=== PATIENT | male | born 1950 | race Caucasian/White ===

== ENCOUNTER 2017-03-24 01:32 | Observation (INO) | payer MEDICAID ==
[2013-11-05 16:13] VITALS: Ht 177.8 cm; Wt 89.8 kg
--- NOTE | 2017-03-23 16:32 | HISTORY AND PHYSICAL ---
DATE OF ADMISSION: March 24, 2017. CHIEF COMPLAINT Elevated PSA. HISTORY OF PRESENT ILLNESS Patient is a 66-year-old white male who was referred to the Urology Clinic for an elevating PSA. He was seen on March 01. At that time his urinalysis was normal. His flow rate was at 13.2 mL/sec with a 61 mL volume postvoid residual. The patient has been on terazosin for for BPH symptoms by his primary care provider for the past three years. His PSA in October was elevated at 11.0. A PSA in 2014 was 4.3 and in 2014 it was 5.1. The patient denies gross hematuria or history of urinary tract infection. Digital rectal exam revealed a moderately enlarged prostate, approximately 40-50 g. There was some subtle induration on the left lateral aspect. The patient had recently seen Dr. Mike Sanchez to schedule a screening colonoscopy. After discussing the patient's progressive PSA and abnormal exam, recommended he undergo a transrectal ultrasound biopsy. Significant risks and benefits were explained including bleeding, infection, false negative rate and need for a secondary procedure. PAST MEDICAL HISTORY * Hypercholesterolemia. * History of pulmonary embolism. * Gastroesophageal reflux disease. * Degenerative joint disease. * BPH. PAST SURGICAL HISTORY * Right inguinal hernia in 2011. * Closed reduction of wrist fracture in 1978. ALLERGIES No known drug allergies. CURRENT MEDICATIONS * Omeprazole. * Terazosin. * Lipitor. * Gabapentin. * Xarelto. FAMILY HISTORY Patient denies known history of prostate cancer. PHYSICAL EXAMINATION GENERAL: Patient is a well-developed, well-nourished white male in no acute distress. HEENT: Normocephalic, atraumatic. CHEST: Clear to auscultation bilaterally. CARDIOVASCULAR: Regular rate and rhythm. ABDOMEN: Soft, nontender. No masses are palpated. GENITOURINARY: Exam is deferred to the OR. EXTREMITIES: Exam without clubbing, cyanosis or edema. NEUROLOGIC: Exam is nonfocal. ASSESSMENT A 66-year-old white male with increasing prostatic specific antigen now to 11 and abnormal digital rectal exam. PLAN We will perform transrectal ultrasound and biopsy of the prostate following Dr. Sanchez screening colonoscopy. [facility]
[2017-03-24] VITALS (10 sets, daily range): BP systolic 117–136; BP diastolic 81–105
[~2017-03-24] VITALS: Ht 177.8 cm; Wt 89.8 kg
[~2017-03-24 01:32] MED LIST: ATOR40TA69 PO; GABA-549 PO; GOLYTE PO; LOR5/325 PO; MULT1CAP59 PO; NAPR220C12 PO; OMEP-125 PO; OMEP-218 PO; RIV10 PO; RIVA20TA PO; TERA1CAP38 PO; WARF-18 PO
[2017-03-24] MEDS ORDERED: FAMOTIDINE 20 MG TAB PO ONE (06:15)
[2017-03-24] MEDS ORDERED: LIDOCAINE MPF 1% 5 ML VIAL ONE (06:31)
[2017-03-24] MEDS ORDERED: PROPOFOL EMUL(*) 10MG/ML 20 ML 20 ML ONE (06:31)
[2017-03-24] MEDS ORDERED: DEXAMETHASONE SOD 4 MG/ML VIAL ONE (06:31)
[2017-03-24] MEDS ORDERED: METOCLOPRAMIDE 10 MG/2 ML SDV ONE (06:31)
[2017-03-24] MEDS ORDERED: ONDANSETRON 4 MG/2 ML VIAL ONE (06:31)
[2017-03-24] MEDS ORDERED: fentaNYL CITR 100 MCG/2 ML AMP ONE (06:33)
--- NOTE | 2017-03-24 06:34 | EKG ---
FACILITY: [facility] [place] PATIENT NAME: CHER HEAD : [id number] MR: [id number] V: [id number] EXAM DATE: ORDERING PHYSICIAN: JO-ANN LYNCH TECHNOLOGIST: Ace Villalpando Reason : Blood Pressure : / mmHG Vent. Rate : 071 BPM Atrial Rate : 071 BPM P-R Int : 166 ms QRS Dur : 088 ms QT Int : 408 ms P-R-T Axes : 060 004 037 degrees QTc Int : 443 ms Sinus rhythm No acute appearing findings When compared with ECG of 14-NOV-2013 09:59, No significant change was found Confirmed by YAEL SCRUGGS ([id number]) on 03/24/2017 1:28:48 PM Referred By: Confirmed By:YAEL SCRUGGS
[2017-03-24] MEDS ORDERED: MIDAZOLAM 2 MG/2 ML VIAL IVP PRN (06:45)
[2017-03-24] MEDS ORDERED: NORMOSOL R SOLN(*) 1000 ML BAG 1,000 ML IV PRN (06:45)
[2017-03-24] MEDS ORDERED: LEVOFLOXACIN/D5W*500 MG/100 ML 100 ML IVPB ONE (06:45)
[2017-03-24] MEDS ORDERED: LIDOCAINE/SOD BICARB 8.4% SYR ID ONE (06:45)
--- NOTE | 2017-03-24 08:40 | Post Operative Progress Note ---
Post Operative Progress Note Date: Mar 24, 2017 Time: 08:38 Surgeon: Daniel Dictation number: [id number] on M*Modal Anesthesia: LMA by Dr. Encarnacion (Dr. Hutton to perform prostate biopsies after the colonoscopy) Pre-Op Diagnosis: Colorectal cancer screening, average risk Post-Op Diagnosis: GERRY Findings: 2 small polyps, 1 in ascending colon just proximal to hepatic flexure, the other in upper rectum Procedure(s): Colonoscopy with cold forceps removal of polyps x2 Specimen Removed:(May be N/A): 1) ascending colon polyp 2) rectal polyp Complications: None Fluids: See anesthesia record Estimated Blood Loss: None Date OP Note Dictated: Mar 24, 2017 Time OP Note Dictated: 08:39 PAZ ALVA MD Mar 24, 2017 08:40
--- NOTE | 2017-03-24 08:43 | Short(Outpt) Discharge Summary ---
Discharge Summary Reason for Hosp/Final Diag: (1) Colon cancer screening Status: Chronic Hospital Course & Plan: Colonoscopy with polypectomy x2 completed without problems. Departure Discharge to: Home, Self Care Discharge Instructions Home Meds Active Scripts Peg/Electrolytes (GOLYTELY SOLUTION) 4,000 Ml Soln, 1 GAL PO ONCE, #1 GAL 0 Refills Prov:PAZ ALVA MD 02/21/17 Reported Medications Rivaroxaban 20 Mg (XARELTO 20 MG) 20 Mg Tablet, 20 MG PO DAILY, TAB 03/18/17 Gabapentin (GABAPENTIN) 300 Mg Capsule, 300 MG PO MORNING, CAPSULE 03/18/17 Gabapentin (GABAPENTIN) 300 Mg Capsule, 600 MG PO HS, CAPSULE 03/18/17 Multivitamin (MULTIVITAMINS) 1 Each Capsule, 1 EACH PO DAILY, CAPSULE 03/18/17 Omeprazole (OMEPRAZOLE) 20 Mg Capsule.dr, 1 CAP PO QDAY, CAP 11/17/16 Atorvastatin Calcium (ATORVASTATIN CALCIUM) 40 Mg Tablet, 1 TAB PO QHS, TAB 11/17/16 Terazosin Hcl (TERAZOSIN HCL) 1 Mg Capsule, 1 MG PO QHS, CAPSULE 11/17/16 Discontinued Reported Medications Gabapentin (GABAPENTIN) 300 Mg Capsule, 300-600 MG PO BID, CAPSULE 11/17/16 Discontinued Scripts Rivaroxaban 20 Mg (XARELTO 20 MG) 20 Mg Tablet, 20 MG PO QDAY, #7 Take 15mg twice a day for about 3 weeks, then take 20mg once a day. Prov:WILLIAN MARMOLEJO MD 11/07/13 Diet: Regular Activity: As Tolerated Special Instructions: Your colonoscopy was completed without any problems and your prep was excellent (Good Job!!). I removed 2 small polyps from your colon and these were sent to pathology. My office will call you in the next week to let you know what the polyps are and when your next colonoscopy should be. Dr. Hutton will give you instructions about when to restart your Xarelto but from the colonoscopy standpoint your first dose of xarelto should be no earlier than 03/27/17, but Dr. Hutton may want you to hold it longer so discuss this with him before going home. PAZ ALVA MD Mar 24, 2017 08:43
[2017-03-24] MEDS ORDERED: APAP/HYDROCODONE 325/5 TAB PO PRN (09:40)
[2017-03-24] MEDS ORDERED: ZOLPIDEM TARTRATE 10 MG TAB PO PRN (09:40)
[2017-03-24] MEDS ORDERED: FLUSH 10 ML SYR IVP PRN (09:40)
[2017-03-24] MEDS ORDERED: MAG HYD/AL HYD/SIMETH 30ML UDC PO PRN (09:40)
[2017-03-24] MEDS ORDERED: ACETAMINOPHEN 325 MG TAB PO PRN (09:40)
--- NOTE | 2017-03-24 15:22 | OPERATIVE REPORT 1 ---
EVENT DATE: March 24, 2017 SURGEON: Noah Sanchez MD ANESTHESIOLOGIST: Noah Encarnacion MD ANESTHESIA: LMA, because he is also getting a urologic procedure by Dr. Hutton to follow the colonoscopy. PREOPERATIVE DIAGNOSIS Colorectal cancer screening, average risk. POSTOPERATIVE DIAGNOSES 1. Colorectal cancer screening, average risk. 2. Two colon polyps. PROCEDURE PERFORMED Colonoscopy with cold forceps polypectomies times two. SPECIMENS 1. Ascending colon polyp. 2. Rectal polyp. FINDINGS This patient's prep was excellent. Withdrawal time was 15 minutes. I saw two very small, 3 mm sessile polyps, one in the ascending colon near the hepatic flexure and the other in the upper rectum. INDICATIONS This is a 66-year-old gentleman who was referred to my office for colonoscopy. He never before had a colonoscopy. He has no known family history of colon or rectal cancer, and he had no GI symptoms. He was also due to get a prostate biopsy by Dr. Hutton because he was found to have an elevated PSA. DESCRIPTION OF PROCEDURE The patient was brought to the operating room and placed supine on the operating table. LMA anesthesia was administered, and his legs were placed in Yellofin stirrups. A digital rectal exam was completed which was unremarkable. I lubricated the colonoscope and advanced it into his rectum through the anus. I advanced it all the way through with no difficulty to the cecum. I also intubated the terminal ileum. I then slowly withdrew the scope as I looked at all mucosal surfaces for any abnormalities. I saw a 3 mm sessile polyp at the ascending colon near the hepatic flexure, and this was removed with cold biopsy forceps, and then the site was cauterized. I then placed an endoclip on this site because the patient is on Xarelto, so I wanted to minimize postprocedure bleeding. I continued to withdraw the scope and saw another small, 3 mm sessile polyp in the upper rectum, and this was removed with cold biopsy forceps. The site was clipped with an endoclip. Both of these sites were hemostatic. I then retroflexed the scope in the rectum to look at the distal rectum and upper anal canal, and there were no abnormalities there. I straightened the scope out, suctioned out as much carbon dioxide as I could from the patient's distal colon and rectum, and then withdrew the scope. I then departed the room, and Dr. Hutton proceeded with his portion of the case. The patient tolerated the procedure without any problems. ОЛЕГ
--- NOTE | 2017-03-24 16:34 | OPERATIVE REPORT 1 ---
EVENT DATE: March 24, 2017 SURGEON: Ronaldo Hutton MD ANESTHESIOLOGIST: Noah Encarnacion MD ANESTHESIA: General anesthetic. PREOPERATIVE DIAGNOSIS Elevated prostate-specific antigen with abnormal left prostate by digital rectal examination. POSTOPERATIVE DIAGNOSIS Elevated prostate-specific antigen with abnormal left prostate by digital rectal examination. PROCEDURES PERFORMED 1. Transrectal ultrasound of prostate. 2. Prostate transrectal needle biopsy. 3. Transrectal ultrasound guidance needle biopsy of prostate. ESTIMATED BLOOD LOSS 5 mL INTRAVENOUS FLUIDS Crystalloid. DRAINS None. COMPLICATIONS None. PATHOLOGY A total of 12 biopsy core specimens sent to Pathology labeled as to position. CONDITION The patient was taken to the recovery room awake and in stable condition. STATEMENT OF MEDICAL NECESSITY The patient is a 66-year-old white male who was noted to have an elevating PSA from 5 up to recently 11. A digital rectal exam revealed subtle deformities on the left lateral aspect of the prostate. The patient is now being taken to the operating room by Dr. Noah Sanchez of General Surgery for screening colonoscopy. We will perform concomitant ultrasound of the prostate with biopsies following his procedure. CONSENT The specific risks and benefits of this were discussed with the patient, including bleeding, infection, sepsis, a false negative with need for further procedures and/or testing. DESCRIPTION OF PROCEDURE PERFORMED The patient was brought to the operating room, and after general anesthetic was obtained, Dr. Sanchez performed a screening colonoscopy. After he was concluded with his procedure, the patient was still in the dorsal lithotomy position. A digital rectal exam was again performed. He still was noted to have some subtle firmness on the left lateral aspect of the prostate, and the prostate appeared to be approximately 60 mL in volume. At this point, the endfire LCM probe was introduced into the patient's rectum atraumatically, and real-time ultrasound of the prostate was performed through the rectal wall. There was no clear evidence of significant hypoechoic lesions throughout the prostate. The prostatic volume was measured at approximately 77 mL volume. My intraoperative interpretation of the ultrasound was enlarged prostate without median lobe extinction or other anomalies. At this point, the biopsy guide was engaged on the ultrasound machine, and this was used to perform ultrasound- guided needle biopsy of the prostate. The biopsy needle gun was used. A total of 12 biopsies were performed starting at the right lateral base, proceeding to the medial aspect, then doing the right mid lateral and medial aspects and in the right apex medial and lateral biopsies. After the right side was done, the left side was done in a similar manner. The ultrasound probe was then removed from the patient atraumatically. He was taken down from the dorsal lithotomy position. He was awakened in the operating room and taken to the recovery area in stable condition. PLAN The plan will be to allow the patient to be discharged home. He is to resume his Xarelto in two days and continue Levaquin for one more day. We will plan to see him in the Urology Clinic in one to two weeks to review his pathology. ОЛЕГ
[2017-03-24] MEDS ORDERED: IBUPROFEN 600 MG TAB PO PRN (17:55)
[2017-03-24] MEDS: NAPROXEN 500 MG TAB PO PRN (18:24)
[2017-03-24] MEDS ORDERED: GABAPENTIN 300 MG CAP PO SCH (21:00)
[2017-03-24] MEDS ORDERED: TERAZOSIN HCL 1 MG CAP PO SCH (21:00)
[2017-03-25 06:28] VITALS: BP 136/91
[2017-03-25] MEDS ORDERED: LEVOFLOXACIN 500 MG TAB PO SCH (06:30)
[2017-03-25] MEDS: NAPROXEN 500 MG TAB PO PRN (06:30)
[2017-03-25] MEDS ORDERED: ATORVASTATIN 40 MG TAB PO SCH (09:00)
[2017-03-25] MEDS ORDERED: PANTOPRAZOLE SOD 40 MG TABEC PO SCH (09:00)
[2017-03-25] MEDS ORDERED: GABAPENTIN 300 MG CAP PO SCH (09:00)
--- NOTE | 2017-03-25 13:42 | RADIOLOGY IMAGING REPORT ---
FACILITY: [facility] PATIENT NAME: Jax Ochoa : 1950 MR: [id number] V: [id number] EXAM DATE: ORDERING PHYSICIAN: PAZ ALVA TECHNOLOGIST: [place] [facility] [place]ax Ochoa : 1950 Visit/Account:[id number] Date of Sevice: 03/24/2017 Exam type: PROSTATE BIOPSY History: Elevated PSA Comparison: None. Findings: The prostate biopsy was performed by Dr. Hutton. Sonographic assistance was provided. Please see Dr Miri Hutton's note for complete details IMPRESSION: 1. As above Report Dictated By: Ellyn White MD at 03/25/2017 1:37 PM Report E-Signed By: Ellyn White MD at 03/25/2017 1:37 PM WSN:[email or web address]
== END 2017-03-25 07:16 | disposition home or self-care (01) ==
LOC: OR 01:32 → MED 09:52
PROVIDERS: ADMIT Urology; ATTEND Surgery
DX: Z12.11 Encounter for screening for malignant neoplasm of colon (principal); R97.20 Elevated prostate specific antigen [PSA]; D12.2 Benign neoplasm of ascending colon; K63.5 Polyp of colon
CPT/HCPCS: 00811; 45380; 55700; 76942; 88305; 88344; 93005; G0378; J1100; J1956; J2001; J2250; J2405; J2704; J2765; J3010

== ENCOUNTER 2017-03-29 16:58 | Emergency (ER) | payer MEDICAID ==
[2013-11-05 16:13] VITALS: Ht 177.8 cm; Wt 89.8 kg
[~2017-03-29] VITALS: Ht 177.8 cm; Wt 89.8 kg
--- NOTE | 2017-03-29 17:11 | ER Report ---
History and Physical Time Seen By MD: 17:09 HPI/ROS CHIEF COMPLAINT: Urinary obstruction HISTORY OF PRESENT ILLNESS: Patient is a 66-year-old male who presents emergency Department with urinary urgency and suprapubic abdominal pain and inability to pass urine. Patient was seen on 03/24/2017 for a needle biopsy of the prostate due to an enlargement on the left aspect of the prostate. This procedure was done by Dr. England. He further had a colonoscopy and polypectomy at that time was performed by Dr Woo. Patient states that he is currently not taking any pain medications nor did he require any narcotic pain medicines after the procedure. He states that he was doing well until this morning with urination states that he had difficulty urinating all day and was able to urinate which causing him his symptoms. He did try to see Dr. England but the office was closed so he presents to the emergency department for evaluation. REVIEW OF SYSTEMS: Respiratory: No cough, no dyspnea. Cardiovascular: No chest pain, no palpitations. Gastrointestinal: No vomiting, suprapubic abdominal discomfort Musculoskeletal: No back pain. Allergies: Coded Allergies: No Known Drug Allergies (Unverified , 03/29/17) Home Meds Reported Medications Rivaroxaban 20 Mg (XARELTO 20 MG) 20 Mg Tablet, 20 MG PO QDAY, TAB 03/29/17 Gabapentin (GABAPENTIN) 300 Mg Capsule, 300 MG PO MORNING, CAPSULE 03/18/17 Gabapentin (GABAPENTIN) 300 Mg Capsule, 600 MG PO HS, CAPSULE 03/18/17 Multivitamin (MULTIVITAMINS) 1 Each Capsule, 1 EACH PO DAILY, CAPSULE 03/18/17 Omeprazole (OMEPRAZOLE) 20 Mg Capsule.dr, 1 CAP PO QDAY, CAP 11/17/16 Atorvastatin Calcium (ATORVASTATIN CALCIUM) 40 Mg Tablet, 1 TAB PO QHS, TAB 11/17/16 Terazosin Hcl (TERAZOSIN HCL) 1 Mg Capsule, 1 MG PO QHS, CAPSULE 11/17/16 Discontinued Reported Medications Rivaroxaban 20 Mg (XARELTO 20 MG) 20 Mg Tablet, 20 MG PO DAILY, TAB 03/18/17 Discontinued Scripts Peg/Electrolytes (GOLYTELY SOLUTION) 4,000 Ml Soln, 1 GAL PO ONCE, #1 GAL 0 Refills Prov:PAZ ALVA MD 02/21/17 Past Medical/Surgical History Past medical history for chronic polyps; hyper cholesterolemia Hx Smoking: No Smoking Status: Never Smoker Exposure to Second Hand Smoke?: No Hx Substance Use Disorder: No Hx Alcohol Use: Yes Constitutional Vital Sign - Last 24 Hours 03/29/17 03/29/17 17:05 17:16 Temp 97.5 97.5 Pulse 92 92 Resp 16 B/P (MAP) 170/107 (128) 170/107 Pulse Ox 90 O2 Delivery Room Air Intake and Output 03/29/17 03/29/17 03/30/17 15:00 23:00 07:00 Output Total 900 ml Balance -900 ml Physical Exam General Appearance: The patient is alert, has no immediate need for airway protection and no current signs of toxicity. Eyes: Pupils equal and round no injection. Respiratory: Chest is non tender, lungs are clear to auscultation. Cardiac: regular rate and rhythm Gastrointestinal: Abdomen is soft and non tender, no masses, bowel sounds normal. Musculoskeletal: Neck: Neck is supple and non tender. Extremities have full range of motion and are non tender. Skin: No rashes or lesions. : Patient with Talamantes catheter intact which drained approximately 1100 mL of yellow colored clear urine. Medical Decision Making ED Course/Re-evaluation ED Course 03/29/2017 5:40:34 pm replaced by nursing staff prior to my evaluation. With return of approximately 1100 mL of clear yellow urine. Patient is feeling much better. Plan at this time will be to have a leg bag placed on the patient. We will send urine for urinalysis and culture. In the interim I'll place the patient on oral Keflex. I will have the patient make an appointment with Dr. Peck 48-72 hours for reevaluation and subsequent removal of the Talamantes catheter. Patient no questions or concerns at time of discharge Decision to Disposition Date: Mar 29, 2017 Decision to Disposition Time: 17:45 Depart Departure Latest Vital Signs Vital Signs Date Time Temp Pulse Resp B/P (MAP) Pulse Ox O2 Delivery O2 Flow Rate FiO2 03/29/17 17:16 97.5 92 16 170/107 90 Room Air Impression: Primary Impression: Urinary obstruction due to nodular prostate Condition: Improved Disposition: HOME OR SELF-CARE Referrals: KRISTAL BARNETT NP (PCP) DON ENGLAND MD 2 Days For reevaluation and Talamantes catheter removal. New Scripts Cephalexin Monohydrate (CEPHALEXIN) 500 Mg Cap 500 MG PO Q6H, #25 CAP 0 Refills Prov: TATO HUFF MD 03/29/17 Patient Instructions: Talamantes Catheter Placement and Care (ED) Additional Instructions: You were prescribed Keflex for prophylaxis for urinary catheter. You were given one dose in the emergency department prior to discharge. Please take one tablet or 500 mg prior to bedtime this evening and then upon awaking tomorrow morning March 30 take your remaining Keflex pill and then have your prescription filled and take as directed until completed. Make a follow-up appointment with Dr. England in 48-72 hours for reevaluation. If the Talamantes catheter is removed at this visit he may discontinue use of the antibiotics. TATO HUFF MD Mar 29, 2017 17:11
[2017-03-29 17:16] VITALS: BP 170/107
[2017-03-29] MEDS ORDERED: RIVA20TA PO (17:22)
[2017-03-29] MEDS ORDERED: CEPH500C24 PO (17:43)
[2017-03-29] MEDS ORDERED: CEPHALEXIN 500 MG CAP TH 2 CAP/BOTTLE PO ONE (17:45)
[2017-03-29] MEDS ORDERED: CEPHALEXIN MONO 500 MG CAP PO ONE (17:45)
== END 2017-03-29 18:22 | disposition home or self-care (01) ==
LOC: ER 17:11
DX: N13.9 Obstructive and reflux uropathy, unspecified (principal)
CPT/HCPCS: 99283

== ENCOUNTER → 2017-05-16 | Outpatient (CLI) | payer MEDICAID, MEDICARE ==
[2013-11-05 16:13] VITALS: BMI 28.8
[~2017-05-16] MED LIST changes: +CEPH500C24 PO; -WARF-18 PO; +WARF5TAB23 PO
--- NOTE | 2017-05-16 15:02 | RADIOLOGY IMAGING REPORT ---
FACILITY: [facility] PATIENT NAME: Jax Ochoa : 1950 MR: [id number] V: [id number] EXAM DATE: ORDERING PHYSICIAN: SHIRA WILCOX TECHNOLOGIST: Location: [facility] Patient: Jax Ochoa : 1950 Visit/Account:[id number] Date of Sevice: 05/16/2017 LIVER HISTORY: Hepatic cysts COMPARISON: November 01, 2016 FINDINGS: Gallbladder: Unremarkable; no stones or sludge. Liver: At least three cysts are identified within the liver. The largest now measures 2.7 cm in diam eter in the right dome of the liver and is slightly increased in size. Along the inferior aspect the right lobe there is a 1.1 cm well-circumscribed echogenic nodule and an additional 1.1 cm nodule rebecca ng the dome. Common duct: Normal, 2.5 mm diameter. Pancreas: Mostly obscured by bowel gas Right kidney: Right kidney appears unremarkable as imaged measures 9.5 cm in length Upper abdominal aorta and IVC: Patent. Ascites: None visualized. IMPRESSION: Multiple cysts are seen throughout the liver largest measuring 2.7 cm in diameter slightly increased when compared the prior study There are two echogenic nodules each measuring 1.1 cm in the liver is could represent hemangiomas alt diogenes other solid lesions not excluded. This could be further evaluated with CT or MR the liver with and without contrast Report Dictated By: Ellyn White MD at 05/16/2017 1:39 PM Report E-Signed By: Ellyn White MD at 05/16/2017 2:59 PM WSN:[email or web address]
== END ==
LOC: US 05-09 07:37
PROVIDERS: ATTEND Family Medicine
DX: K76.89 Other specified diseases of liver (principal)
CPT/HCPCS: 76705

== ENCOUNTER → 2017-06-08 | Outpatient (CLI) | payer MEDICARE ==
[2013-11-05 16:13] VITALS: BMI 28.8
[~2017-06-08] MED LIST changes: +GADOBENATE 529MG/1ML 15ML VIAL IVP ONE; +NS 0.9% 20 ML SDV 20 ML ONE
--- NOTE | 2017-06-08 10:07 | RADIOLOGY IMAGING REPORT ---
FACILITY: [facility] PATIENT NAME: Jax Ochoa : 1950 MR: [id number] V: [id number] EXAM DATE: ORDERING PHYSICIAN: PAZ METCALF TECHNOLOGIST: Location: [facility] Patient: Jax Ochoa : 1950 Visit/Account:[id number] Date of Sevice: 06/08/2017 Single view of the orbits INDICATION: Pre-MRI. Evaluate for radiopaque foreign body. FINDINGS: Single Villalta' view was obtained of the skull. No evidence of radiopaque foreign body over lying the bilateral orbits. The visualized paranasal sinuses appear patent. No acute osseous abnorm ality identified. IMPRESSION: No evidence of radiopaque foreign body overlying the orbits. Report Dictated By: Anderson Vallejo MD at 06/08/2017 10:03 AM Report E-Signed By: Anderson Vallejo MD at 06/08/2017 10:03 AM WSN:[email or web address]
== END ==
LOC: MRI 02:51
PROVIDERS: ATTEND Family Medicine
DX: R93.3 Abnormal findings on diagnostic imaging of other parts of digestive tract (principal)
CPT/HCPCS: 70030; 74183; J7050; A9577

== ENCOUNTER → 2017-12-05 | Outpatient (CLI) | payer MEDICARE, MEDICAID ==
[2013-11-05 16:13] VITALS: BMI 28.8
[~2017-12-05] MED LIST changes: -NS 0.9% 20 ML SDV 20 ML ONE; +NS(*) 0.9% 50 ML BAG 50 ML ONE
--- NOTE | 2017-12-05 10:25 | RADIOLOGY IMAGING REPORT ---
FACILITY: [facility] PATIENT NAME: Jax Ochoa : 1950 MR: [id number] V: [id number] EXAM DATE: ORDERING PHYSICIAN: PAZ METCALF TECHNOLOGIST: Location: [facility] [place] Patient: Jax Ochoa : 1950 Visit/Account:[id number] Date of Sevice: 12/05/2017 ABDOMEN W W/O CONTRAST HISTORY: Liver masses on ultrasound ADDITIONAL HISTORY: None. TECHNIQUE: TECHNIQUE: Multiplanar multisequence magnetic resonance imaging of the abdomen with and without intravenous contrast. CONTRAST: 15 mL of MultiHance COMPARISON: Liver ultrasound May 16, 2017 FINDINGS: Visualized lung bases: Grossly unremarkable. Liver: There are numerous hepatic cysts present. Along the dome of the right lobe there is a 1.1 cm faintly visualized nodule that demonstrates mild p eripheral contrast enhancement on the arterial phase images with progressive centripetal filling on t he delayed images following blood pool to be consistent with a small hemangioma. The additional 1.1 cm nodule described in the previous ultrasound report along the inferior aspect of the right lobe is not well seen Gallbladder: Negative. Bile ducts: Nondistended and unremarkable. Spleen: Negative. Adrenal glands: Negative. Pancreas: Negative. Kidneys: Negative. Vessels/spaces/nodes: No bulky adenopathy or ascities. Visualized GI: There is a large hiatal hernia Bones/soft tissues: Unremarkable. IMPRESSION: Numerous hepatic cysts 1.1 cm nodule along the hepatic dome has contrast enhancement features consistent with a benign heman gioma. The additional 1.1 cm nodule inferior aspect right lobe seen on the prior liver ultrasound wa s not well-seen Large hiatal hernia Report Dictated By: Ellyn White MD at 12/05/2017 9:46 AM Report E-Signed By: Ellyn White MD at 12/05/2017 10:21 AM WSN:[email or web address]
== END ==
LOC: MRI 04:57
PROVIDERS: ATTEND Family Medicine
DX: D18.03 Hemangioma of intra-abdominal structures (principal); K76.89 Other specified diseases of liver; K44.9 Diaphragmatic hernia without obstruction or gangrene
CPT/HCPCS: 36415; 74183; 82565; A9577; J7050

== ENCOUNTER → 2017-12-13 | Outpatient (CLI) | payer MEDICARE, MEDICAID ==
[2013-11-05 16:13] VITALS: BMI 28.8
[~2017-12-13] MED LIST changes: -GADOBENATE 529MG/1ML 15ML VIAL IVP ONE; -NS(*) 0.9% 50 ML BAG 50 ML ONE
--- NOTE | 2017-12-13 09:42 | RADIOLOGY IMAGING REPORT ---
FACILITY: [facility] [place] PATIENT NAME: Jax Ochoa : 1950 MR: [id number] V: [id number] EXAM DATE: ORDERING PHYSICIAN: COLLEEN CLARKE TECHNOLOGIST: Location: [facility] Patient: Jax Ochoa : 1950 Visit/Account:[id number] Date of Sevice: 12/13/2017 SOFT TISSUE NON-SPECIFIC HISTORY: Patient states there is an abnormality on the left. COMPARISON: None. FINDINGS: Targeted ultrasound was performed over the left hemiabdomen. In the region of concern, there is shiela stalsing bowel noted. Valsalva demonstrates no evidence of hernia. No mass or abnormal fluid collec tion. IMPRESSION: No sonographic abnormality overlying the left hemiabdomen. Report Dictated By: Sriram Hsieh MD at 12/13/2017 9:34 AM Report E-Signed By: Sriram Hsieh MD at 12/13/2017 9:38 AM WSN:[email or web address]
== END ==
LOC: US 00:37
PROVIDERS: ATTEND Physician Assistant Medical
DX: R10.817 Generalized abdominal tenderness (principal)
CPT/HCPCS: 76999